=== PATIENT | female | born 1935 | race Caucasian/White ===

== ENCOUNTER → 2018-03-01 | Outpatient (CLI) | payer OTHER ==
--- NOTE | 2018-03-01 10:51 | PCVCIMAG ---
EXAM: BILATERAL SUPERFICIAL VENOUS DUPLEX INDICATION: Leg pain and swelling. FINDINGS: Right leg: No thrombus in the common femoral, main femoral, or popliteal veins. These veins are compressible. Right Great Saphenous Vein: At the saphenofemoral junction the diameter is 8.6 mm, in the mid thigh it is 5.1 mm, and in the calf it is 2.5 mm. There is significant venous insufficiency/reflux in the lower leg. Venous insufficiency/reflux duration is 7.0 seconds. Right Small Saphenous Vein: At the saphenopopliteal junction the diameter is 5.9 mm, and in the calf it is 3.4 mm. There is significant venous insufficiency/reflux throughout. Venous insufficiency/reflux duration is 2.3 seconds. There is not a cranial extension present. Left leg: No thrombus in the common femoral, main femoral, or popliteal veins. These veins are compressible. Left Great Saphenous Vein: At the saphenofemoral junction the diameter is 9.3 mm, in the mid thigh it is 4.1 mm, and in the calf it is 3.9 mm. There is not significant venous insufficiency/reflux throughout. Venous insufficiency/reflux duration is 0 seconds. Left Small Saphenous Vein: At the saphenopopliteal junction the diameter is 4.3 mm, and in the calf it is 3.3 mm. There is not significant venous insufficiency/reflux throughout. Venous insufficiency/reflux duration is 0 seconds. There is not a cranial extension present. IMPRESSION: Right Great Saphenous Vein: Significant venous insufficiency/reflux is present as noted above. Note is made vein is somewhat small in size. Right Small Saphenous Vein: Significant venous insufficiency/reflux is present as noted above. Note is made vein is small in size. Left Great Saphenous Vein: No significant venous insufficiency/reflux is present as noted above. Left Small Saphenous Vein: No significant venous insufficiency/reflux is present as noted above. Incidental note is made of a 1.6 x 1.2 x 5.3 cm right popliteal cyst and a 1.9 x 4.6 x 9.2 cm left popliteal cyst. LOC:[id number]
== END | disposition home or self-care (01) ==
LOC: PCVCIMAG 09:18
PROVIDERS: ATTEND Nuclear Medicine Nuclear Cardiology
DX: I87.2 Venous insufficiency (chronic) (peripheral) (principal); M79.89 Other specified soft tissue disorders
CPT/HCPCS: 93970